=== PATIENT | female | born 1970 | race Caucasian/White ===

== ENCOUNTER 2021-07-18 13:51 | Emergency (ER) | payer OTHER ==
[~2021-07-18] VITALS: Ht 154.9 cm; Wt 81.2 kg
[2021-07-18 14:10] VITALS: BP 165/97
== END 2021-07-18 15:35 | disposition home or self-care (01) ==
LOC: ED 15:29
DX: S80.01XA Contusion of right knee, initial encounter (principal); R07.89 Other chest pain; M79.651 Pain in right thigh; V53.1XXA Passenger in pick-up truck or van injured in collision with car, pick-up truck or van in nontraffic accident, initial encounter; Y93.89 Activity, other specified; Y92.410 Unspecified street and highway as the place of occurrence of the external cause; Y99.8 Other external cause status
CPT/HCPCS: 71046; 99284